=== PATIENT | male | born 1995 | race Caucasian/White ===

== ENCOUNTER 2018-03-30 15:51 | Inpatient (IN) | payer BC ==
[2018-03-30] MEDS: morphine 4 MG/ML VIAL IV (16:31)
[2018-03-30] MEDS: ONDANSETRON 4 MG INJ IV ×3 (16:31→21:44)
[2018-03-30] MEDS: FAMOTIDINE 20 MG INJ IV (16:31)
[2018-03-30] MEDS: SOD CHLORIDE 0.9% 1,000 ML IV ×2 (16:32→21:41)
[2018-03-30 16:35] LABS: ADD MAN DIFF? NO
[2018-03-30 16:39] LABS: BASOPHILS % 0.2 % (0.0-2.0); HEMATOCRIT 48.6 % (42.0-52.0); HEMOGLOBIN 16.8 g/dl (14.0-18.0); LYMPHOCYTES # 0.9 10^3/ul (0.8-2.9); LYMPHOCYTES % 4.5 % (15.0-51.0); MEAN CORPUSCULAR HEMOGLOBIN 29.7 pg (29.0-33.0); MEAN CORPUSCULAR HGB CONC 34.6 g/dl (32.0-37.0); MEAN PLATELET VOLUME 11.5 fl (7.4-10.4); MONOCYTE # 0.5 10^3/ul (0.3-0.9); MONOCYTES % 2.7 % (0.0-11.0); NEUTROPHIL # 18.3 10^3/ul (1.6-7.5); NEUTROPHILS % 91.7 % (39.0-77.0); PLATELET COUNT 243 10^3/UL (140-415); RED BLOOD COUNT 5.65 10^6/ul (4.70-6.10); RED CELL DISTRIBUTION WIDTH 11.9 % (11.5-14.5)
[2018-03-30 16:39] LABS: WHITE BLOOD COUNT 19.9 10^3/ul (4.8-10.8)
[2018-03-30 16:56] LABS: ADD UMIC NO; UR ASCORBIC ACID NEGATIVE (NEGATIVE); UR BACTERIA FEW /HPF (NONE SEEN); UR BILIRUBIN (Dip) NEGATIVE (NEGATIVE); UR BLOOD (Dip) NEGATIVE (NEGATIVE); UR CLARITY SLIGHTLY CLOUDY (CLEAR); UR COLOR YELLOW (YELLOW); UR GLUCOSE (Dip) NEGATIVE (NEGATIVE); UR KETONES (Dip) NEGATIVE (NEGATIVE); UR LEUKOCYTE ESTERASE (Dip) NEGATIVE Leu/ul (NEGATIVE); UR MUCUS FEW /HPF (NONE SEEN); UR NITRITE (Dip) NEGATIVE (NEGATIVE); UR RBC 1 /HPF (0-5); UR SPECIFIC GRAVITY (Dip) 1.031 (1.003-1.030); UR TOTAL PROTEIN (Dip) NEGATIVE (NEGATIVE); UR UROBILINOGEN (Dip) 1+ mg/dL (NEGATIVE); UR WBC 1 /HPF (0-5)
[2018-03-30 17:02] LABS: ALANINE AMINOTRANSFERASE 60 IU/L (13-69); ALBUMIN 5.2 g/dl (3.3-4.9); ALKALINE PHOSPHATASE 107 IU/L (42-121); ANION GAP 13 (5-13); ASPARTATE AMINO TRANSFERASE 37 IU/L (15-46); BILIRUBIN,INDIRECT 0.8 mg/dl (0-1.1); BILIRUBIN,TOTAL 0.8 mg/dl (0.2-1.3); BLOOD UREA NITROGEN 11 mg/dl (7-20); CALCIUM 9.7 mg/dl (8.4-10.2); CARBON DIOXIDE 23 mmol/L (21-31); CHLORIDE 105 mmol/L (97-110); CREATININE 0.69 mg/dl (0.61-1.24); Estimated GFR > 60 mL/min (>60); GLUCOSE 151 mg/dl (70-220); LIPASE 44 U/L (23-300); POTASSIUM 4.5 mmol/L (3.5-5.1); SODIUM 141 mmol/L (135-144); TOTAL PROTEIN 8.9 g/dl (6.1-8.1)
[2018-03-30] MEDS: KETOROLAC 30 MG INJ IV (17:35)
[2018-03-30] MEDS: HYDROmorphONE 0.5 MG/0.5 ML SYG IV ×2 (17:43→21:45)
[2018-03-30] MEDS ORDERED: BISACODYL (EC) 5 MG TAB PO (21:30)
[2018-03-30] MEDS ORDERED: DOCUSATE SODIUM 100 MG CAP PO (21:30)
[2018-03-30] MEDS ORDERED: ACETAMINOPHEN 325 MG TAB PO (21:30)
[2018-03-30] MEDS ORDERED: NACL 0.9% 3 ML SYG IV (21:30)
[2018-03-30] MEDS: PIPER-TAZO 3.375 GM IV (PMX) 100 ML IVPB (21:45)
[2018-03-30] MEDS: HYDROmorphONE 1 MG/ML SYG IV (23:30)
[2018-03-31] MEDS: PIPER-TAZO 3.375 GM IV (PMX) 100 ML IVPB ×5 (02:50→23:15)
[2018-03-31 05:34] LABS: ADD MAN DIFF? NO
[2018-03-31 05:50] LABS: WHITE BLOOD COUNT 15.8 10^3/ul (4.8-10.8)
[2018-03-31 05:50] LABS: BASOPHIL # 0.1 10^3/ul (0.0-0.1); BASOPHILS % 0.3 % (0.0-2.0); EOSINOPHILS # 0.1 10^3/ul (0.0-0.5); EOSINOPHILS % 0.3 % (0.0-7.0); HEMATOCRIT 42.5 % (42.0-52.0); HEMOGLOBIN 14.6 g/dl (14.0-18.0); LYMPHOCYTES % 12.7 % (15.0-51.0); MEAN CORPUSCULAR HEMOGLOBIN 30.2 pg (29.0-33.0); MEAN CORPUSCULAR HGB CONC 34.4 g/dl (32.0-37.0); MEAN PLATELET VOLUME 12.2 fl (7.4-10.4); MONOCYTE # 1.3 10^3/ul (0.3-0.9); NEUTROPHIL # 12.4 10^3/ul (1.6-7.5); NEUTROPHILS % 78.2 % (39.0-77.0); PLATELET COUNT 217 10^3/UL (140-415); RED BLOOD COUNT 4.83 10^6/ul (4.70-6.10); RED CELL DISTRIBUTION WIDTH 12.2 % (11.5-14.5)
[2018-03-31] MEDS: HYDROmorphONE 1 MG/ML SYG IV ×3 (06:49→13:14)
[2018-03-31 06:57] LABS: ALANINE AMINOTRANSFERASE 44 IU/L (13-69); ALBUMIN 4.1 g/dl (3.3-4.9); ALBUMIN/GLOBULIN RATIO 1.78; ALKALINE PHOSPHATASE 70 IU/L (42-121); ANION GAP 10 (5-13); ASPARTATE AMINO TRANSFERASE 22 IU/L (15-46); BILIRUBIN,INDIRECT 1.5 mg/dl (0-1.1); BILIRUBIN,TOTAL 1.5 mg/dl (0.2-1.3); BLOOD UREA NITROGEN 11 mg/dl (7-20); CALCIUM 8.9 mg/dl (8.4-10.2); CARBON DIOXIDE 26 mmol/L (21-31); CHLORIDE 106 mmol/L (97-110); CHOL/HDL RATIO 4.1 RATIO; CHOLESTEROL 132 mg/dl (100-200); CREATININE 0.79 mg/dl (0.61-1.24); Estimated GFR > 60 mL/min (>60); GLUCOSE 115 mg/dl (70-220); HDL CHOLESTEROL 32 mg/dl (30-63); LDL CHOLESTEROL,CALCULATED 60 mg/dl; POTASSIUM 4.2 mmol/L (3.5-5.1); SODIUM 142 mmol/L (135-144); TOTAL PROTEIN 6.4 g/dl (6.1-8.1); TRIGLYCERIDES 198 mg/dl (0-149)
[2018-03-31] MEDS ORDERED: GLYCOPYRROLATE 0.4 MG INJ ×2 (07:00→18:33)
[2018-03-31] MEDS ORDERED: LIDOCAINE 2% (SDV) 5 ML INJ (07:00)
[2018-03-31] MEDS: SOD CHLORIDE 0.9% 1,000 ML IV ×2 (07:08→09:28)
[2018-03-31 08:21] LABS: HEMOGLOBIN A1C 4.7 % (0-5.9)
[2018-03-31] MEDS ORDERED: ROCURONIUM 50 MG INJ (16:18)
[2018-03-31] MEDS ORDERED: PROPOFOL 20 ML (16:18)
[2018-03-31] MEDS: LIDOCAINE 1%/EPI 30 ML INJ INJ (16:37)
[2018-03-31] MEDS: BUPIVACAINE 0.25% (MPF) 30 ML INJ (16:37)
[2018-03-31] MEDS ORDERED: DEXAMETHASONE 4 MG/ML 1 ML INJ (17:43)
[2018-03-31] MEDS ORDERED: ONDANSETRON 4 MG INJ (17:44)
[2018-03-31] MEDS ORDERED: NEOSTIGMINE 3 MG/3 ML SYRINGE (17:47)
[2018-03-31] MEDS ORDERED: ACETAMINOPHEN 325 MG TAB PO (18:00)
[2018-03-31] MEDS ORDERED: METOCLOPRAMIDE 10 MG INJ IV (18:00)
[2018-03-31] MEDS ORDERED: FENTAnyl 50 MCG/ML VIAL IV ×2 (18:00)
[2018-03-31] MEDS ORDERED: LABETALOL HCL 20MG INJ IV (18:00)
[2018-03-31] MEDS ORDERED: OXYCODONE/ACETAMINOPHEN (5/325) TAB PO (18:00)
[2018-03-31] MEDS ORDERED: HYDROmorphONE 1 MG/5 ML IV SYRINGE IV ×2 (18:00→18:06)
[2018-03-31] MEDS ORDERED: ONDANSETRON 4 MG INJ IV (18:00)
[2018-03-31] MEDS ORDERED: ALBUTEROL 0.083% (NEB) 2.5 MG/3 ML AMP HHN (18:00)
[2018-03-31] MEDS ORDERED: DIPHENHYDRAMINE 50 MG INJ IV (18:00)
[2018-03-31] MEDS ORDERED: EPHEDrine SULFATE 50 MG/5 ML SYG IV (18:00)
[2018-03-31] MEDS ORDERED: hydrALAzine 20 MG INJ IV (18:00)
[2018-03-31] MEDS ORDERED: KETOROLAC 30 MG INJ IV (18:00)
[2018-03-31] MEDS ORDERED: MEPERIDINE 25 MG INJ (18:05)
[2018-03-31] MEDS: MEPERIDINE 25 MG INJ IV (18:07)
[2018-03-31] MEDS: ONDANSETRON 4 MG INJ IV (18:10)
[2018-03-31] MEDS: HYDROmorphONE 1 MG/5 ML IV SYRINGE IV ×3 (18:21→18:36)
[2018-03-31] MEDS: FENTAnyl 50 MCG/ML VIAL IV ×3 (18:41→18:54)
[2018-03-31] MEDS: OXYCODONE/ACETAMINOPHEN (5/325) TAB PO (18:50)
[2018-03-31] MEDS: D5W-0.45 NACL + KCL 20 MEQ 1,000 ML IV (19:52)
[2018-03-31] MEDS: KETOROLAC 30 MG INJ IV (22:11)
[2018-04-01] MEDS: HYDROmorphONE 0.5 MG/0.5 ML SYG IV ×2 (03:49→09:03)
[2018-04-01] MEDS: D5W-0.45 NACL + KCL 20 MEQ 1,000 ML IV ×2 (03:57→06:15)
[2018-04-01] MEDS: PIPER-TAZO 3.375 GM IV (PMX) 100 ML IVPB ×4 (05:11→23:37)
[2018-04-01 06:03] LABS: ADD MAN DIFF? NO
[2018-04-01 06:10] LABS: WHITE BLOOD COUNT 15.3 10^3/ul (4.8-10.8)
[2018-04-01 06:10] LABS: BASOPHILS % 0.2 % (0.0-2.0); HEMATOCRIT 40.9 % (42.0-52.0); HEMOGLOBIN 13.8 g/dl (14.0-18.0); LYMPHOCYTES # 1.2 10^3/ul (0.8-2.9); LYMPHOCYTES % 8.1 % (15.0-51.0); MEAN CORPUSCULAR HEMOGLOBIN 29.9 pg (29.0-33.0); MEAN CORPUSCULAR HGB CONC 33.7 g/dl (32.0-37.0); MEAN CORPUSCULAR VOLUME 88.5 fl (82.0-101.0); MONOCYTES % 6.5 % (0.0-11.0); NEUTROPHIL # 12.9 10^3/ul (1.6-7.5); NEUTROPHILS % 84.6 % (39.0-77.0); PLATELET COUNT 212 10^3/UL (140-415); RED BLOOD COUNT 4.62 10^6/ul (4.70-6.10)
[2018-04-01] MEDS: ENOXAPARIN 40 MG/0.4 ML SYG SC (06:14)
[2018-04-01] MEDS: HYDROCODONE/APAP (5/325) TAB PO (06:17)
[2018-04-01] MEDS ORDERED: HYDROCODONE/APAP (10/325) TAB PO (11:00)
[2018-04-01] MEDS: DOCUSATE SODIUM 100 MG CAP PO ×2 (11:56→20:51)
[2018-04-01] MEDS: FISH OIL 1,000 MG CAP PO ×2 (11:56→20:51)
[2018-04-01] MEDS: ACETAMINOPHEN 325 MG TAB PO ×2 (13:53→20:52)
[2018-04-01] MEDS: oxyCODONE 5 MG TAB PO (14:40)
[2018-04-02] MEDS: ACETAMINOPHEN 325 MG TAB PO ×3 (01:30→12:02)
[2018-04-02] MEDS: oxyCODONE 5 MG TAB PO (02:08)
[2018-04-02] MEDS: PIPER-TAZO 3.375 GM IV (PMX) 100 ML IVPB ×2 (06:08→12:02)
[2018-04-02] MEDS: ENOXAPARIN 40 MG/0.4 ML SYG SC (06:08)
[2018-04-02 06:59] LABS: ADD MAN DIFF? NO
[2018-04-02 07:06] LABS: BASOPHIL # 0.1 10^3/ul (0.0-0.1); BASOPHILS % 0.5 % (0.0-2.0); EOSINOPHILS # 0.2 10^3/ul (0.0-0.5); EOSINOPHILS % 1.5 % (0.0-7.0); HEMATOCRIT 41.4 % (42.0-52.0); HEMOGLOBIN 14.2 g/dl (14.0-18.0); LYMPHOCYTES # 3.3 10^3/ul (0.8-2.9); LYMPHOCYTES % 30.4 % (15.0-51.0); MEAN CORPUSCULAR HEMOGLOBIN 29.8 pg (29.0-33.0); MEAN CORPUSCULAR HGB CONC 34.3 g/dl (32.0-37.0); MEAN PLATELET VOLUME 11.7 fl (7.4-10.4); MONOCYTE # 0.8 10^3/ul (0.3-0.9); MONOCYTES % 7.5 % (0.0-11.0); NEUTROPHIL # 6.4 10^3/ul (1.6-7.5); PLATELET COUNT 229 10^3/UL (140-415); RED BLOOD COUNT 4.76 10^6/ul (4.70-6.10); RED CELL DISTRIBUTION WIDTH 12.1 % (11.5-14.5)
[2018-04-02 07:06] LABS: WHITE BLOOD COUNT 10.9 10^3/ul (4.8-10.8)
[2018-04-02] MEDS: DOCUSATE SODIUM 100 MG CAP PO (08:48)
[2018-04-02] MEDS: FISH OIL 1,000 MG CAP PO (08:48)
== END 2018-04-02 13:30 | disposition home or self-care (01) | DRG 418 ==
LOC: FTE 15:51 → PP2 19:41
PROC: 0FT44ZZ Resection of Gallbladder, Percutaneous Endoscopic Approach (ICD-10-PCS; principal; 2018-03-31 16:11)
DX: K80.12 Calculus of gallbladder with acute and chronic cholecystitis without obstruction (principal); Z68.41 Body mass index [BMI] 40.0-44.9, adult; E66.01 Morbid (severe) obesity due to excess calories; Z71.3 Dietary counseling and surveillance
CPT/HCPCS: 71045; 76705; 80053; 80061; 81001; 81003; 83036; 83690; 83735; 84443; 85025; 88304